=== PATIENT | female | born 1945 | race Caucasian/White ===

== ENCOUNTER → 2019-07-25 13:13 | Outpatient (CLI) | payer MEDICARE, OTHER ==
[2019-07-25 13:45] LABS: BASOPHILS 0.5 % (0-2); EOSINOPHILS 0.6 % (0-7); HEMATOCRIT 33.3 % (36.0-48.0); IMMATURE GRANULOCYTES 0.2 % (0-5); LYMPHOCYTES 18.1 % (15-50); MCH 33.2 pg (26.0-34.0); MCV 100.6 fL (80.0-100.0); MEAN PLATELET VOLUME 8.9 fL (7.4-10.4); MONOCYTES 10.5 % (2-11); NEUTROPHILS 70.1 % (40-80); PLATELET COUNT 227 10x3/uL (130-400); RBC 3.31 10x6/uL (4.00-5.40); RDW 12.9 % (11.5-14.5); WBC 6.2 10x3/uL (4.8-10.8)
[2019-07-25 14:03] LABS: ANION GAP 8.8 mmol/L (8-16); BILIRUBIN - TOTAL 0.31 mg/dL (0.2-1.3); CARBON DIOXIDE 31.1 mmol/L (21.0-32.0); CREATININE - SERUM 1.1 mg/dL (0.6-1.3); POTASSIUM - SERUM 3.9 mmol/L (3.5-5.1); PROTEIN - SERUM 7.1 g/dL (6.4-8.2)
[2019-07-25 14:48] LABS: ERYTHROCYTE SEDIMENTATION RATE 26 mm/hr (0-30)
== END | disposition home or self-care (01) ==
LOC: D.LAB 13:13
PROVIDERS: ATTEND Internal Medicine Gastroenterology
DX: R10.11 Right upper quadrant pain (principal); K51.90 Ulcerative colitis, unspecified, without complications

== ENCOUNTER 2020-05-10 20:21 | Emergency (ER) | payer MEDICARE, OTHER ==
[~2020-05-10] VITALS: Ht 152.4 cm; Wt 51.4 kg
[2020-05-10 20:48] VITALS: BP 154/95; Ht 152.4 cm; Wt 51.4 kg
[2020-05-10] MEDS ORDERED: FOLIC ACID (20:50)
[2020-05-10] MEDS ORDERED: SLEEPING PILL (20:50)
[2020-05-10] MEDS ORDERED: LEXAPRO (20:50)
[2020-05-10] MEDS ORDERED: LISINOPRIL10 MG PO (20:50)
[2020-05-10] MEDS ORDERED: AZULFIDINE500 MG (20:51)
[2020-05-10 21:29] LABS: BILIRUBIN NEGATIVE (NEGATIVE); GLUCOSE NEGATIVE (NEGATIVE); KETONE NEGATIVE (NEGATIVE); NITRITE NEGATIVE (NEGATIVE); UROBILINOGEN NORMAL (NORMAL)
[2020-05-10 21:30] LABS: BASOPHILS 1.2 % (0-2); EOSINOPHILS 0.7 % (0-7); HEMATOCRIT 33.5 % (36.0-48.0); HEMOGLOBIN 11.1 g/dL (12-16); IMMATURE GRANULOCYTES 0.2 % (0-5); LYMPHOCYTES 45.1 % (15-50); MCH 33.2 pg (26.0-34.0); MCHC 33.1 g/dL (31.0-37.0); MCV 100.3 fL (80.0-100.0); MEAN PLATELET VOLUME 8.6 fL (7.4-10.4); MONOCYTES 11.9 % (2-11); NEUTROPHILS 40.9 % (40-80); PLATELET COUNT 237 10x3/uL (130-400); RBC 3.34 10x6/uL (4.00-5.40); WBC 4.2 10x3/uL (4.8-10.8)
[2020-05-10 22:01] LABS: ANION GAP 11.3 mmol/L (8-16); CALCIUM 8.8 mg/dL (8.5-10.1); CARBON DIOXIDE 28.6 mmol/L (21.0-32.0); POTASSIUM - SERUM 3.9 mmol/L (3.5-5.1)
[2020-05-10 22:07] LABS: ALBUMIN 4.3 g/dL (3.4-5.0); BILIRUBIN - TOTAL 0.4 mg/dL (0.2-1.3); PROTEIN - SERUM 7.3 g/dL (6.4-8.2)
[2020-05-10 22:11] LABS: C-REACTIVE PROTEIN 0.4 mg/dL (0.0-0.9); CREATINE KINASE 138 UL (21-215); PRO BNP 82 pg/mL (0-125); THYROID STIMULATING HORMONE 4.95 uIU/mL (0.36-3.74)
[2020-05-10 22:12] LABS: TROPONIN-I < 0.017 ng/mL (0.000-0.060)
== END 2020-05-10 22:13 | disposition home or self-care (01) ==
LOC: D.ER 20:21
PROVIDERS: Family Medicine
DX: R53.81 Other malaise (principal); R53.83 Other fatigue; K63.89 Other specified diseases of intestine; I10 Essential (primary) hypertension; R42 Dizziness and giddiness